=== PATIENT | male | born 1975 | race Caucasian/White ===

== ENCOUNTER 2017-11-09 08:47 | Emergency (ER) | payer MEDICAID ==
[~2017-11-09] VITALS: Ht 157.5 cm; Wt 70.5 kg
[~2017-11-09 08:47] MED LIST: IBUP-1986 PO; PRED50TA PO
[2017-11-09] MEDS ORDERED: TETanus/Pertussis (Acell)/Diphther VAC/PF (Tdap-Adult) 0.5ml syringe IM ONE (09:30)
[2017-11-09] MEDS ORDERED: metoprolol tartrate 50mg tablet PO ONE (09:30)
[2017-11-09] MEDS ORDERED: HYDROcodone/acetaminophen 10/325mg tab PO ONE (09:50)
[2017-11-09] MEDS ORDERED: ibuprofen 200mg tablet PO ONE (09:50)
[2017-11-09] MEDS ORDERED: METO50TA17 PO (10:54)
[2017-11-09] MEDS ORDERED: CYCL-1 PO (10:54)
[2017-11-09 11:13] VITALS: BP 183/110
== END 2017-11-09 11:15 | disposition home or self-care (01) ==
LOC: ER 08:48
DX: S16.1XXA Strain of muscle, fascia and tendon at neck level, initial encounter (principal); S30.810A Abrasion of lower back and pelvis, initial encounter; I10 Essential (primary) hypertension; F17.200 Nicotine dependence, unspecified, uncomplicated; E11.9 Type 2 diabetes mellitus without complications; Z79.899 Other long term (current) drug therapy; W22.8XXA Striking against or struck by other objects, initial encounter; Y93.89 Activity, other specified; Y92.89 Other specified places as the place of occurrence of the external cause; Y99.8 Other external cause status
CPT/HCPCS: 72125; 90471; 90715; 99284

== ENCOUNTER 2018-04-02 17:44 | Emergency (ER) | payer MEDICAID ==
[~2018-04-02] VITALS: Ht 157.5 cm; Wt 72.7 kg
[~2018-04-02 17:44] MED LIST changes: +CYCL-1 PO; +METO50TA17 PO
[2018-04-02 18:09] VITALS: BP 193/113
[2018-04-02] MEDS ORDERED: CLIN300C85 PO (20:31)
[2018-04-02] MEDS ORDERED: ACET-3068 PO (20:31)
== END 2018-04-02 20:38 | disposition home or self-care (01) ==
LOC: ER 17:45
DX: K04.7 Periapical abscess without sinus (principal); K02.9 Dental caries, unspecified; I10 Essential (primary) hypertension; E11.9 Type 2 diabetes mellitus without complications; F17.200 Nicotine dependence, unspecified, uncomplicated; Z79.899 Other long term (current) drug therapy
CPT/HCPCS: 99283

== ENCOUNTER 2020-03-28 07:06 | Emergency (ER) | payer MEDICAID, OTHER ==
[~2020-03-28] VITALS: Ht 172.7 cm; Wt 72.7 kg
[~2020-03-28 07:06] MED LIST changes: +CLIN-97 PO
--- NOTE | 2020-03-28 07:53 | NUR ---
0706 Patient arrives with CPR in progress, patient noted to be in asystole when moved to [facility] and CPR is resumed 0708 epinephrine given 0709 Patient is asystolic with fixed and dilated pupils, CPR resumed 0710 bicarb given 0712 calcium given 0713 Patient remains in asystole, epinephrine given, CPR resumed 0716 Patient in asystole with cardiac standstill using bedside ultrasound, CPR resumed 07 epinephrine given 0720 ROSC obtained for approximaely 30 seconds before transitioning into Vtach at 07. Epinephrine given, CPR resumed 0723 Patient remains in Vtach, defibrillation 200 joules performed, bicarb given, CPR resumed 07 150mg amiodarone given 07 Patient is in asystole with no cardiac movement by bedside ultrasound. Code ended.
--- NOTE | 2020-03-28 08:07 | NUR ---
Pts family has been contacted by Dr. Poe and this RN. Mother Krystle Nicholson was main contact. Family has chosen [facility] in [place] as mortuary.
--- NOTE | 2020-03-28 08:18 | NUR ---
(NEPHEW) SANDRA [phone] (FRIEND) HENRY [phone] (MOTHER) GOLDEN HELMS [phone]
--- NOTE | 2020-03-28 08:34 | NUR ---
[facility] and [facility] have both been contacted by this RN. [facility] is en route.
[2020-03-28] MEDS ORDERED: epiNEPHrine 0.1mg/ml 10ml syringe ONE (09:00)
[2020-03-28] MEDS ORDERED: sodium bicarbonate (8.4%) 1 mEq/ml syringe ONE (09:00)
[2020-03-28] MEDS ORDERED: amiodarone 50MG/ML inj IV ONE (09:00)
== END 2020-03-28 08:55 | disposition expired ==
LOC: ER 07:06
DX: I46.9 Cardiac arrest, cause unspecified (principal); I10 Essential (primary) hypertension; E11.9 Type 2 diabetes mellitus without complications; Z79.899 Other long term (current) drug therapy
CPT/HCPCS: 31500; 92950; 99285; 99291; J0171